=== PATIENT | female | born 1940 | race Caucasian/White ===

== ENCOUNTER 2019-03-15 19:59 | Emergency (ER) | payer OTHER ==
[~2019-03-15] VITALS: Ht 157.5 cm; Wt 57.7 kg
--- NOTE | 2019-03-15 20:02 | NUR ---
BIB DAUGHTER FOR INTERMITTENT ABD PAIN; PT AAOX2-3, PT ON MONITOR, VSS, NAD NOTED, PENDING MD ROMO
[2019-03-15] MEDS ORDERED: ONDANSETRON HCL/PF 4 MG/2 ML VIAL IVP ONE (20:30)
[2019-03-15] MEDS ORDERED: IV NS 0.9% 1,000 ML BAG IV ONE ×2 (20:30→21:30)
[2019-03-15 20:36] LABS: APPEARANCE,URINE Clear (CLEAR); BILIRUBIN,URINE SMALL (NEGATIVE); BLOOD, URINE Trace-lysed Ery/uL (NEGATIVE); COLOR,URINE Yellow (YELLOW); KETONES,URINE Trace (NEGATIVE); LEUKOCYTE ESTERASE ,URINE Trace (NEGATIVE); NITRITE, URINE Negative (NEGATIVE); PROTEIN,URINE 100 mg/dl (NEGATIVE); UGLUCOSE Negative (NEGATIVE); UROBILINOGEN,URINE 0.2 EU/dL (0.2)
[2019-03-15] MEDS ORDERED: ONDANSETRON HCL/PF 4 MG/2 ML VIAL ONE (20:46)
[2019-03-15 20:48] LABS: BACTERIA,URINE Few /HPF (None Seen); SQUAMOUS EPITHELIAL CELL,UR Few /HPF (None Seen)
[2019-03-15 21:00] LABS: BASOPHILS # (AUTO) 0.1 /CMM (0.0-0.2); BASOPHILS % (AUTO) 0.4 % (0.0-2.0); EOSINOPHILS % (AUTO) 1.9 % (0.0-6.0); HEMATOCRIT 33 % (33-45); HEMOGLOBIN 10.6 g/dL (11.5-14.8); LYMPHOCYTES # (AUTO) 4.5 /CMM (0.8-4.8); LYMPHOCYTES % (AUTO) 33.4 % (20.0-44.0); MEAN CORPUSCULAR HGB CONC 33 g/dl (31.0-36.0); MEAN CORPUSCULAR VOLUME 88 fL (82-100); MONOCYTES # (AUTO) 0.8 /CMM (0.1-1.30); MONOCYTES % (AUTO) 5.7 % (2.0-12.0); NEUTROPHILS # (AUTO) 7.9 /CMM (1.8-8.9); NEUTROPHILS % (AUTO) 58.6 % (43.0-81.0); PLATELET COUNT (AUTO) 301 /CMM (150-450); RED BLOOD CELL COUNT(AUTO) 3.69 MIL/uL (4.0-5.2); WHITE BLOOD COUNT (AUTO) 13.4 K/uL (4.3-11.0)
[2019-03-15 21:30] LABS: ALANINE AMINOTRANSFERASE 129 U/L (12-78); ALBUMIN 3.7 g/dL (3.4-5.0); ALKALINE PHOSPHATASE 221 U/L (46-116); ASPARTATE AMINOTRANSFERASE 186 U/L (15-37); BILIRUBIN,DIRECT 0.2 mg/dL (0.0-0.2); BILIRUBIN,TOTAL 0.5 mg/dL (0.2-1.0); CALCIUM, SERUM 9.1 mg/dL (8.5-10.1); CARBON DIOXIDE 28 mmol/L (21-32); CHLORIDE 104 mmol/L (98-107); CREATININE 1.2 mg/dL (0.6-1.3); GLUCOSE 178 mg/dL (74-106); LIPASE 287 U/L (73-393); POTASSIUM 4.2 mmol/L (3.5-5.1); SODIUM SERUM 142 mmol/L (136-145); TOTAL PROTEIN, SERUM 8.1 g/dL (6.4-8.2); UREA NITROGEN, BLOOD 29 mg/dL (7-18)
[2019-03-16 00:11] VITALS: BP 139/70
--- NOTE | 2019-03-16 00:11 | NUR ---
Patient discharged to home in stable condition. Written and verbal after care instructions given. Patient verbalizes understanding of instruction. IV removed. Catheter intact and site benign. Pressure and 4x4 applied to site. No bleeding noted.
== END 2019-03-16 00:11 | disposition home or self-care (01) ==
LOC: ER 20:02
DX: K83.8 Other specified diseases of biliary tract (principal); K31.0 Acute dilatation of stomach; R74.0 Nonspecific elevation of levels of transaminase and lactic acid dehydrogenase [LDH]; I10 Essential (primary) hypertension; E11.9 Type 2 diabetes mellitus without complications; R11.10 Vomiting, unspecified; Z90.49 Acquired absence of other specified parts of digestive tract; Z98.890 Other specified postprocedural states
CPT/HCPCS: 36415; 74176; 80048; 80076; 81001; 83605 ×2; 83690; 83735; 84484; 85025; 85730; 87040 ×2; 87086; 93005; 96361; 96374; 99284; J2405; J7030 ×2; 81000-TC

== ENCOUNTER 2019-08-20 21:32 | Emergency (ER) | payer OTHER ==
[~2019-08-20] VITALS: Ht 157.5 cm; Wt 57.2 kg
[2019-08-20] MEDS ORDERED: IV NS 0.9% 500 ML BAG IV ONE ×2 (22:00→22:30)
--- NOTE | 2019-08-20 22:01 | NUR ---
BIB FAMILY MEMBERS C/O GENERALIZED WEAKNESS, DIZZINESS & DECREASE APPETITE. PT FAMILY REPORTS UNWITNESSED GFL YESTERDAY. NO FACIAL DROOP. NO H/A. NO ONE SIDED ARM WEAKNESS.
[2019-08-20 22:10] LABS: CALCIUM, SERUM 9.5 mg/dL (8.5-10.1); CARBON DIOXIDE 30 mmol/L (21-32); CHLORIDE 102 mmol/L (98-107); CREATININE 1.4 mg/dL (0.6-1.3); GLUCOSE 154 mg/dL (74-106); POTASSIUM 4.3 mmol/L (3.5-5.1); SODIUM SERUM 139 mmol/L (136-145); UREA NITROGEN, BLOOD 36 mg/dL (7-18)
[2019-08-20 22:14] LABS: BASOPHILS # (AUTO) 0.1 /CMM (0.0-0.2); BASOPHILS % (AUTO) 0.5 % (0.0-2.0); EOSINOPHILS % (AUTO) 3.4 % (0.0-6.0); HEMATOCRIT 32 % (33-45); HEMOGLOBIN 10.5 g/dL (11.5-14.8); LYMPHOCYTES # (AUTO) 5.4 /CMM (0.8-4.8); LYMPHOCYTES % (AUTO) 46.1 % (20.0-44.0); MEAN CORPUSCULAR HGB CONC 33 g/dl (31.0-36.0); MEAN CORPUSCULAR VOLUME 87 fL (82-100); MONOCYTES # (AUTO) 0.6 /CMM (0.1-1.30); MONOCYTES % (AUTO) 5.5 % (2.0-12.0); NEUTROPHILS # (AUTO) 5.2 /CMM (1.8-8.9); NEUTROPHILS % (AUTO) 44.5 % (43.0-81.0); PLATELET COUNT (AUTO) 257 /CMM (150-450); RED BLOOD CELL COUNT(AUTO) 3.71 MIL/uL (4.0-5.2); WHITE BLOOD COUNT (AUTO) 11.7 K/uL (4.3-11.0)
[2019-08-20 22:16] LABS: ALANINE AMINOTRANSFERASE 12 U/L (12-78); ALBUMIN 3.5 g/dL (3.4-5.0); ALKALINE PHOSPHATASE 42 U/L (46-116); ASPARTATE AMINOTRANSFERASE 12 U/L (15-37); BILIRUBIN,DIRECT 0.1 mg/dL (0.0-0.2); BILIRUBIN,TOTAL 0.2 mg/dL (0.2-1.0); LIPASE 277 U/L (73-393); TOTAL PROTEIN, SERUM 7.8 g/dL (6.4-8.2)
[2019-08-20 22:36] LABS: APPEARANCE,URINE Clear (CLEAR); BILIRUBIN,URINE Negative (NEGATIVE); BLOOD, URINE Small Ery/uL (NEGATIVE); COLOR,URINE Yellow (YELLOW); KETONES,URINE Negative (NEGATIVE); LEUKOCYTE ESTERASE ,URINE Small (NEGATIVE); NITRITE, URINE Negative (NEGATIVE); PROTEIN,URINE Negative (NEGATIVE); UGLUCOSE Negative (NEGATIVE); UROBILINOGEN,URINE 0.2 EU/dL (0.2)
[2019-08-20 23:45] LABS: WBC,URINE 21-50 /HPF (0-3)
[2019-08-20 23:46] LABS: BACTERIA,URINE Few /HPF (None Seen); SQUAMOUS EPITHELIAL CELL,UR Few /HPF (None Seen)
[2019-08-21] MEDS ORDERED: MORPHINE SULFATE INJ 10 MG/ML DISP.SYRIN IV ONE
[2019-08-21] MEDS ORDERED: MORPHINE SULFATE INJ 4 MG/ML DISP.SYRIN ONE (00:15)
--- NOTE | 2019-08-21 00:42 | NUR ---
IV removed. Catheter intact and site benign. Pressure and 4x4 applied to site. No bleeding noted.
--- NOTE | 2019-08-21 00:42 | NUR ---
Patient does not wish to proceed with medical care recommended by Dr. Palacio. Patient given information related to possible complications, up to and including , which could occur as a result of leaving the hospital at this time. Patient verbalizes understanding of risks involved due to leaving against medical advice. Patient has signed AMA form.
--- NOTE | 2019-08-21 01:06 | NUR ---
Patient discharged to home with the familly.
[2019-08-21 01:34] VITALS: BP 134/76
== END 2019-08-21 01:06 | disposition left against medical advice (07) ==
LOC: ER 21:32
DX: R55 Syncope and collapse (principal); I10 Essential (primary) hypertension; E11.9 Type 2 diabetes mellitus without complications; Z90.49 Acquired absence of other specified parts of digestive tract; Z86.73 Personal history of transient ischemic attack (TIA), and cerebral infarction without residual deficits
CPT/HCPCS: 36415; 70450; 71045; 80048; 80076; 81001; 83690; 84484; 85025; 87086; 93005; 99284; J7040 ×2; 81000-TC; J2270

== ENCOUNTER 2020-11-29 23:04 | Emergency (ER) | payer OTHER ==
[~2020-11-29] VITALS: Ht 154.9 cm; Wt 81.6 kg
--- NOTE | 2020-11-29 23:58 | NUR ---
BIBFAMIRON C/O FEVER X4 DAY +DRY COUGH, AT [facility] FOR EVAL. AWAITING ORDERS.
[2020-11-29] MEDS ORDERED: ACETAMINOPHEN 325 MG TABLET ONE (23:59)
[2020-11-30] MEDS ORDERED: ACETAMINOPHEN 650 MG/20.3 ML UDC ONE (00:06)
[2020-11-30] MEDS: ACETAMINOPHEN 325 MG TABLET PO ONE ×2 (00:13)
[2020-11-30] MEDS ORDERED: ACETAMINOPHEN 650 MG/20.3 ML UDC PO ONE (00:30)
--- NOTE | 2020-11-30 02:02 | NUR ---
Patient discharged to home in stable condition. Written and verbal after care instructions given. Patient verbalizes understanding of instruction and RX. Pt wheeled out. Pt's daughter picked up pt.
[2020-11-30 02:25] VITALS: BP 138/72
== END 2020-11-30 02:26 | disposition home or self-care (01) ==
LOC: ER 23:07
DX: U07.1 COVID-19 (principal); Z86.73 Personal history of transient ischemic attack (TIA), and cerebral infarction without residual deficits; I11.9 Hypertensive heart disease without heart failure; R91.8 Other nonspecific abnormal finding of lung field; Z90.49 Acquired absence of other specified parts of digestive tract; E11.9 Type 2 diabetes mellitus without complications; J90 Pleural effusion, not elsewhere classified
CPT/HCPCS: 71045; 99284; C9803; U0003

== ENCOUNTER 2020-12-06 19:22 | Inpatient (IN) | payer OTHER ==
[~2020-12-06] VITALS: Ht 157.5 cm; Wt 64.4 kg
--- NOTE | 2020-12-06 19:40 | NUR ---
Note undone in EDM - 12/06/20 at 2134 by SANDI TO ER BED 17 BIB DAUGHTER FOR C/O WEAKNESS & FEVER X1DAY. TESTED COVID (+) 11/29/20. TYLENOLY Q4H WITHOUT RELIEF PER PT DAUGHTER REPORT. PT AAOX4 NO ACUTE DISTRESS NOTED, RESP EVEN AND UNLABORED, O2 SAT 95% ON RA. PLACE PT ON CARDIAC MONITORING, CONTINUOUS POX. PENDING ER MD ROMO.
--- NOTE | 2020-12-06 19:40 | NUR ---
TO ER BED 17 BIB DAUGHTER FOR C/O WEAKNESS & FEVER X1DAY. TESTED COVID (+) 11/29/20. TYLENOLY Q4H WITHOUT RELIEF PER PT DAUGHTER REPORT. PT AAOX2 NO ACUTE DISTRESS NOTED, RESP EVEN AND UNLABORED, O2 SAT 95% ON RA. PLACE PT ON CARDIAC MONITORING, CONTINUOUS POX. PENDING ER MD RMOO.
--- NOTE | 2020-12-06 19:45 | NUR ---
STARTED SL 18G RFA, BLOOD DRAWN AND SENT TO LAB.
[2020-12-06] MEDS ORDERED: AZITHROMYCIN 500 MG in IV D5W 250 ML IV ONE ×2 (20:00→20:30)
[2020-12-06] MEDS ORDERED: CEFTRIAXONE 1 G in IV D5W 50 ML IV ONE ×2 (20:00→20:30)
[2020-12-06] MEDS ORDERED: IBUPROFEN 600 MG TABLET PO ONE (20:00)
[2020-12-06] MEDS ORDERED: ACETAMINOPHEN ES 500 MG TABLET PO ONE (20:00)
[2020-12-06] MEDS ORDERED: DEXAMETHASONE SOD PHOSPHATE 10 MG/ML VIAL IV ONE ×2 (20:00→20:30)
[2020-12-06] MEDS ORDERED: IBUPROFEN 600 MG TABLET ONE (20:10)
[2020-12-06 20:11] LABS: BASOPHILS % (AUTO) 0.1 % (0.0-2.0); EOSINOPHILS % (AUTO) 0.2 % (0.0-6.0); HEMATOCRIT 30 % (33-45); LYMPHOCYTES # (AUTO) 2.3 /CMM (0.8-4.8); LYMPHOCYTES % (AUTO) 20.8 % (20.0-44.0); MEAN CORPUSCULAR HGB CONC 33 g/dl (31.0-36.0); MEAN CORPUSCULAR VOLUME 86 fL (82-100); MONOCYTES # (AUTO) 0.5 /CMM (0.1-1.30); MONOCYTES % (AUTO) 4.9 % (2.0-12.0); NEUTROPHILS # (AUTO) 8.3 /CMM (1.8-8.9); PLATELET COUNT (AUTO) 336 /CMM (150-450); RED BLOOD CELL COUNT(AUTO) 3.54 MIL/uL (4.0-5.2); WHITE BLOOD COUNT (AUTO) 11.2 K/uL (4.3-11.0)
[2020-12-06 20:17] LABS: CALCIUM, SERUM 8.7 mg/dL (8.5-10.1); CARBON DIOXIDE 24 mmol/L (21-32); CHLORIDE 94 mmol/L (98-107); CREATININE 1.5 mg/dL (0.6-1.3); GLUCOSE 207 mg/dL (74-106); POTASSIUM 3.7 mmol/L (3.5-5.1); SODIUM SERUM 129 mmol/L (136-145); UREA NITROGEN, BLOOD 24 mg/dL (7-18)
[2020-12-06 20:19] LABS: ABG BASE EXCESS -3.5 mmol/L; ABG OXYGEN SATURATION 92.3 % (92.0-98.5); ABG PCO2 30.5 mmHg (35.0-45.0); ABG PH 7.433 (7.350-7.450); ABG PO2 61.4 mmHg (75.0-100.0); AaDO2 51.8 mmHg; COHb 0.1 % (0.5-1.5); MetHb 0.4 % (0.0-1.5); O2Hb 91.8 % (94.0-97.0); SITE, ABG Right Radial; VENT MODE, BG RA
[2020-12-06] MEDS ORDERED: IBUPROFEN SUSP 100 MG/5 ML UDC ONE (20:19)
[2020-12-06] MEDS ORDERED: CEFTRIAXONE 1GM BAG (ER ONLY) 50 ML IV ONE (20:27)
[2020-12-06] MEDS ORDERED: DEXAMETHASONE SOD PHOSPHATE 10 MG/ML VIAL ONE (20:27)
[2020-12-06] MEDS ORDERED: IBUPROFEN SUSP 100 MG/5 ML UDC PO ONE (20:30)
[2020-12-06 20:31] LABS: ALANINE AMINOTRANSFERASE 43 U/L (12-78); ALBUMIN 2.8 g/dL (3.4-5.0); ALKALINE PHOSPHATASE 42 U/L (46-116); ASPARTATE AMINOTRANSFERASE 47 U/L (15-37); BILIRUBIN,DIRECT 0.2 mg/dL (0.0-0.2); BILIRUBIN,TOTAL 0.4 mg/dL (0.2-1.0); TOTAL PROTEIN, SERUM 7.9 g/dL (6.4-8.2)
[2020-12-06] MEDS ORDERED: AZITHROMYCIN 500 MG VIAL ONE (20:47)
[2020-12-06 20:53] LABS: D-DIMER 1.15 mg/L(FEU (0.17-0.50)
--- NOTE | 2020-12-06 21:24 | NUR ---
CALLED DAUGHTER NOELLE, NOTIFIED HER THAT PT IS BEING ADMITTED TO HOSPITAL. SHE SAID TO CALL HER FOR ANY UPDATES
--- NOTE | 2020-12-06 21:36 | NUR ---
COVID SWAB COLLECTED AND SENT TO LAB.
[2020-12-06] MEDS ORDERED: DOCU-141 PO (22:57)
[2020-12-06] MEDS ORDERED: ERGO500014 (22:57)
[2020-12-06] MEDS ORDERED: ASPI-1169 PO (22:57)
[2020-12-06] MEDS ORDERED: LISI2.5T2 PO (22:57)
[2020-12-06] MEDS ORDERED: METF-440 PO (22:57)
[2020-12-06] MEDS ORDERED: EZET10TA15 GT (22:57)
[2020-12-06] MEDS ORDERED: TOLT4CAP PO (22:57)
--- NOTE | 2020-12-06 22:58 | NUR ---
SPOKE TO THE PT'S DAUGHTER OVER THE PHONE AND UBTAINED THE HOME MED'S LIST. MED RECON DONE ACCORDINGLY.
[2020-12-06 23:18] LABS: CREATINE KINASE, TOTAL 48 U/L (26-192); FERRITIN 581 ng/mL (8-388)
[2020-12-06 23:21] LABS: C-REACTIVE PROTEIN 13.2 mg/dL (0.0-0.9)
[2020-12-07] MEDS ORDERED: DEXTROSE 50%-WATER 50 ML DISP.SYRIN IV PRN
[2020-12-07] MEDS ORDERED: ONDANSETRON HCL/PF 4 MG/2 ML VIAL IVP PRN
[2020-12-07] MEDS ORDERED: MORPHINE SULFATE INJ 2 MG/ML DISP.SYRIN IV PRN
[2020-12-07] MEDS ORDERED: ALBUTEROL SULFATE INH 18 GM HFA.AER.AD IH PRN
[2020-12-07] MEDS ORDERED: ACETAMINOPHEN 325 MG TABLET PO PRN
[2020-12-07] MEDS ORDERED: Potassium Chloride 20 MEQ in IV NS 0.9% 1,000 ML IV PRN ×2
[2020-12-07] MEDS ORDERED: Z GUARD REMEDY 2 OZ OINT TP PRN
[2020-12-07] MEDS ORDERED: ENOXAPARIN SODIUM 30 MG/0.3 ML DISP.SYRIN SQ SCH
[2020-12-07] MEDS ORDERED: ENOXAPARIN SODIUM 30 MG/0.3 ML DISP.SYRIN ONE (00:17)
--- NOTE | 2020-12-07 01:32 | NUR ---
PT ASLEEP, NO ACUTE DISTRESS NOTED, RESP EVEN AND UNLABORED. NO PAIN OR DISCOMFORT NOTED. CALL LIGHT WITHIN REACH. WILL CONTINUE TO MONITOR PT CLOSELY.
[2020-12-07 04:58] LABS: BASOPHILS % (AUTO) 0.2 % (0.0-2.0); HEMATOCRIT 34 % (33-45); HEMOGLOBIN 11.1 g/dL (11.5-14.8); LYMPHOCYTES # (AUTO) 1.1 /CMM (0.8-4.8); LYMPHOCYTES % (AUTO) 12.6 % (20.0-44.0); MEAN CORPUSCULAR HGB CONC 33 g/dl (31.0-36.0); MEAN CORPUSCULAR VOLUME 85 fL (82-100); MONOCYTES # (AUTO) 0.3 /CMM (0.1-1.30); MONOCYTES % (AUTO) 2.8 % (2.0-12.0); NEUTROPHILS # (AUTO) 7.5 /CMM (1.8-8.9); NEUTROPHILS % (AUTO) 84.4 % (43.0-81.0); PLATELET COUNT (AUTO) 358 /CMM (150-450); RED BLOOD CELL COUNT(AUTO) 3.93 MIL/uL (4.0-5.2); WHITE BLOOD COUNT (AUTO) 8.9 K/uL (4.3-11.0)
[2020-12-07 05:54] LABS: ALANINE AMINOTRANSFERASE 39 U/L (12-78); ALBUMIN 2.7 g/dL (3.4-5.0); ALKALINE PHOSPHATASE 45 U/L (46-116); ASPARTATE AMINOTRANSFERASE 39 U/L (15-37); B-TYPE NATRIURETIC PEPTIDE 812 PG/ML (0-125); BILIRUBIN,TOTAL 0.4 mg/dL (0.2-1.0); CALCIUM, SERUM 8.9 mg/dL (8.5-10.1); CARBON DIOXIDE 24 mmol/L (21-32); CHLORIDE 95 mmol/L (98-107); CREATININE 1.8 mg/dL (0.6-1.3); GLUCOSE 348 mg/dL (74-106); MAGNESIUM 1.5 mg/dL (1.8-2.4); PHOSPHORUS 2.9 mg/dL (2.5-4.9); POTASSIUM 3.5 mmol/L (3.5-5.1); SODIUM SERUM 131 mmol/L (136-145); UREA NITROGEN, BLOOD 27 mg/dL (7-18)
[2020-12-07 05:59] LABS: CHOLESTEROL 113 mg/dL (<200); HDL CHOLESTEROL 62 mg/dL (40-60); LDL 43 mg/dL (0-99); THYROID STIMULATING HORMONE 0.452 uIU/mL (0.358-3.74); TRIGLYCERIDES 54 mg/dL (30-150)
--- NOTE | 2020-12-07 07:30 | NUR ---
REPORT GIVEN TO AM SHIFT EUGENIO SRIVASTAVA.
[2020-12-07] MEDS: BLOOD SUGAR DIAGNOSTIC 1 EACH STRIP IN SCH ×4 (07:41→21:47)
[2020-12-07] MEDS ORDERED: INSULIN REGULAR, HUMAN 100 UNIT/ML 10 ML VIAL ONE (08:48)
[2020-12-07] MEDS ORDERED: DEXAMETHASONE SOD PHOSPHATE 10 MG/ML VIAL ONE (08:49)
[2020-12-07] MEDS ORDERED: PANTOPRAZOLE 40 MG TABLET.DR PO ONE (08:49)
[2020-12-07] MEDS: INSULIN REGULAR, HUMAN 100 UNIT/ML 3 ML VIAL SQ PRN ×3 (08:50→22:03)
--- NOTE | 2020-12-07 08:50 | NUR ---
PATIENT REFUSING TO EAT BREAKFAST, INSULIN HELD AT THIS TIME.
[2020-12-07] MEDS: TOLTERODINE 2 MG CAP.SR PO SCH (08:52)
[2020-12-07] MEDS: ASPIRIN 81 MG TAB.CHEW PO SCH (08:52)
[2020-12-07] MEDS: DEXAMETHASONE SOD PHOSPHATE 10 MG/ML VIAL IV SCH (08:52)
[2020-12-07] MEDS: DOCUSATE SODIUM 100 MG CAPSULE PO SCH ×2 (08:52→16:29)
[2020-12-07] MEDS: PANTOPRAZOLE 40 MG TABLET.DR PO SCH (08:52)
[2020-12-07] MEDS ORDERED: Magnesium 1GM/D5W 100ML PREMIX 100 ML IV SCH (11:00)
[2020-12-07] MEDS ORDERED: Magnesium 1GM/D5W 100ML PREMIX 100 ML IV ONE (11:19)
--- NOTE | 2020-12-07 11:46 | NUR ---
PATIENT WEIGH ON THE BED, SHOWS 64KG. RECEIVED ORDER FROM DR. LEES TO START HEPARIN DRIP.
--- NOTE | 2020-12-07 11:51 | NUR ---
ORDERED PTT, PT/INR PER PHARMACY'S REQUEST.
--- NOTE | 2020-12-07 12:26 | NUR ---
PER DR. LEES, GIVE BOLUS FOR THE HEPARIN DRIP.
--- NOTE | 2020-12-07 12:33 | NUR ---
OFFERED FOOD MULTIPLE TIMES, PATIENT IS REFUSING TO EAT. EXPLAINED RISKS AND BENEFITS, PATIENT ONLY WANTS JUICE. INSULIN HELD AT THIS TIME. WILL CALL FAMILY.
--- NOTE | 2020-12-07 12:52 | NUR ---
PTT RESULTED, [facility] HEPARIN SHEET FAXED OVER TO PHARMACY
[2020-12-07] MEDS ORDERED: HEPARIN SODIUM, PORCINE 5000 UNITS/1 ML VIAL IV ONE (13:00)
--- NOTE | 2020-12-07 13:23 | NUR ---
ROOM 200
[2020-12-07] MEDS ORDERED: HEPARIN SODIUM, PORCINE 5000 UNITS/1 ML VIAL ONE (13:34)
[2020-12-07] MEDS: HEPARIN INFUSION/D5W 500 ML IV PRN ×2 (14:08→22:16)
--- NOTE | 2020-12-07 14:13 | NUR ---
REPORT GIVEN TO JIMMIE BECKER FOR WILLIAM.
--- NOTE | 2020-12-07 14:13 | NUR ---
HEPARIN STARTED NO ADVERSE REACTION NOTED.
--- NOTE | 2020-12-07 14:18 | NUR ---
NEXT PTT SCHEDULED AT 1999.
--- NOTE | 2020-12-07 14:30 | NUR ---
GOLF CLUB REPAIRER OPENING NOTE RECEIVED PATIENT FROM ER - REPORT FROM ZAYRA. PATIENT IS AWAKE, A&O. MAINLY OCCITAN SPEAKING. VS: BP 145/88 HR 98 RR 19 T 97.6 O2 SAT 92% ON ROOM AIR. IV TO RIGHT FOREARM INTACT AND PATENT. CONTINUES ON HEPARIN DRIP FOR ELEVATED TROPONIN LEVEL. NO S/S OF ACTIVE BLEEDING NOTED. NO S/S PAIN NOTED. CALL LIGHT WITHIN REACH. ASPIRATION, FALL AND SAFETY PRECAUTIONS MAINTAINED. WILL CONTINUE TO MONITOR.
--- NOTE | 2020-12-07 14:30 | NUR ---
PATIENT TRANSFERRED TO ROOM 200 VIA ACLS PROTOCOL. NO DISTRESS NOTED. IN STABLE CONDITION. DAUGHTER MADE AWARE PATIENT IS REFUSING MEALS.
[2020-12-07 14:45] VITALS: BP 145/88
--- NOTE | 2020-12-07 18:27 | NUR ---
PLANE TENDER CLOSING NOTE PATIENT IS CURRENTLY RESTING IN BED. AWAKE, ALERT AND ORIENTED X 1-2. PRIMARILY ROMANIAN SPEAKING. ABLE TO MAKE NEEDS KNOWN. NO COMPLAINTS OF PAIN THIS SHIFT. IV ACCESS TO RIGHT FOREARM INTACT AND PATENT. CONTINUES ON HEPARIN DRIP WITH PTT BEING DRAWN AT 1999. NO S/S OF ADVERSE SIDE EFFECTS NOTED. NO S/S OF ACTIVE BLEEDING NOTED. CALL LIGHT WITHIN REACH. ASPIRATION, FALL AND SAFETY PRECAUTIONS MAINTAINED. WILL ENDORSE TO ONCOMING SHIFT RN. Addendum: 12/07/20 at 1831 by JIMMIE ARCE RN VITAL SIGNS: BP 145/88 HR 98 RR 19 T 97.6 O2 SAT 92% ON ROOM AIR. NO S/S OF RESPIRATORY DISTRESS NOTED.
--- NOTE | 2020-12-07 19:30 | NUR ---
LIQUOR BRIDGE OPERATOR HELPER OPENING NOTE RECEIVED PATIENT IN BED. A/OX 2. TRYING TO COMMUNICATE WITH HAND GESTURES. TOLERATING ROOM AIR AT THIS TIME. RESPIRATIONS ARE EVEN AND UNLBAORED. NO S/S SOB NOTED. NO S/S PAIN NOTED. EXTERNAL TELE MONITOR READS SINUS RHYTHM HR 70S. IN NO APPARENT DISTRESS. IV ACCESS IN RFA#18 RUNNING HEPARIN 960 UNITS/HR. BED IS LOW AND LOCKED, HOB ELEVATED IN SEMI FOWLERS, SIDE RAILS UP X3. CALL LIGHT WITHIN REACH. WILL CONTINUE TO MONITOR THROUGHOUT SHIFT.
[2020-12-07 20:00] VITALS: BP 150/82
--- NOTE | 2020-12-07 20:59 | NUR ---
BUILDING TRADES INSTRUCTOR NOTE - HEPARIN RECEIVED LAB APTT 161.1. PER WEIGHT BASE HEPARIN DOSING ORDER FOR ACUTE CORONARY SYNDROME/AMI HOLD INFUSION FOR 60 MINUTES AND THEN DECREASE BY 200UNITS/HOUR. WILL DECREASE AND CONTINUE AT 760 UNITS/HOUR. ORDER PT/PTT IN 6 HOURS AFTER INFUSION BEGINS AGAIN.
[2020-12-07] MEDS: AZITHROMYCIN 500 MG in IV D5W 250 ML IV SCH (21:47)
[2020-12-08] VITALS: BP 132/76
[2020-12-08 04:00] VITALS: BP 99/52
[2020-12-08 04:21] LABS: BASOPHILS % (AUTO) 0.1 % (0.0-2.0); HEMATOCRIT 33 % (33-45); HEMOGLOBIN 11.1 g/dL (11.5-14.8); LYMPHOCYTES # (AUTO) 2.3 /CMM (0.8-4.8); LYMPHOCYTES % (AUTO) 13.6 % (20.0-44.0); MEAN CORPUSCULAR HGB CONC 33 g/dl (31.0-36.0); MEAN CORPUSCULAR VOLUME 84 fL (82-100); MONOCYTES # (AUTO) 0.8 /CMM (0.1-1.30); NEUTROPHILS # (AUTO) 13.9 /CMM (1.8-8.9); NEUTROPHILS % (AUTO) 81.3 % (43.0-81.0); PLATELET COUNT (AUTO) 416 /CMM (150-450); RED BLOOD CELL COUNT(AUTO) 3.96 MIL/uL (4.0-5.2)
[2020-12-08 04:31] LABS: CALCIUM, SERUM 9.2 mg/dL (8.5-10.1); CARBON DIOXIDE 25 mmol/L (21-32); CHLORIDE 95 mmol/L (98-107); CREATININE 1.5 mg/dL (0.6-1.3); GLUCOSE 242 mg/dL (74-106); MAGNESIUM 3.3 mg/dL (1.8-2.4); POTASSIUM 3.8 mmol/L (3.5-5.1); SODIUM SERUM 132 mmol/L (136-145); UREA NITROGEN, BLOOD 31 mg/dL (7-18)
--- NOTE | 2020-12-08 04:40 | NUR ---
FELT HAT INSPECTOR AND PACKER NOTE - HEPARIN APTT 77.3. PER WEIGHT BASED HEPARIN DOSING ORDER FOR ACUTE CORONARY SYNDROME/AMI DECREASE RATE BY 50 UNITS/HOURS. NEW DOSE IS 710 UNITS /HR. ORDER PT/PTT AFTER 6 HOURS.
[2020-12-08] MEDS: HEPARIN INFUSION/D5W 500 ML IV PRN ×2 (05:05→22:08)
--- NOTE | 2020-12-08 06:19 | NUR ---
THIRD SHIFT LIEUTENANT CLOSING NOTE PATIENT RESTING IN BED. A/OX 2. REMAINS TOLERATING ROOM AIR AT THIS TIME.NO RESP DISTRESS NOTED. NO PAIN NOTED. EXTERNAL TELE MONITOR READS SINUS RHYTHM. NO DISTRESS. IV ACCESS MAINTAINED IN RFA#18 RUNNING HEPARIN 710 UNITS/HR, NO BLEEDING NOTED. BED REMAINS LOW AND LOCKED, HOB ELEVATED IN SEMI FOWLERS, SIDE RAILS UP X3. CALL LIGHT WITHIN REACH. WILL ENDORSE TO NEXT SHIFT.
[2020-12-08] MEDS: BLOOD SUGAR DIAGNOSTIC 1 EACH STRIP IN SCH ×3 (06:29→17:34)
[2020-12-08] MEDS: INSULIN REGULAR, HUMAN 100 UNIT/ML 3 ML VIAL SQ PRN ×3 (06:34→17:35)
--- NOTE | 2020-12-08 07:30 | NUR ---
PT RECEIVED RESTING COMFORTABLY IN BED. NO S/S OR C/O PAIN OR DISTRESS NOTED. SIDE RAILS UP X2, CALL LIGHT LEFT WITHIN REACH. WILL CONTINUE PLAN OF CARE.
[2020-12-08] MEDS: PANTOPRAZOLE 40 MG TABLET.DR PO SCH (09:17)
[2020-12-08] MEDS: TOLTERODINE 2 MG CAP.SR PO SCH (09:17)
[2020-12-08] MEDS: DEXAMETHASONE SOD PHOSPHATE 10 MG/ML VIAL IV SCH (09:17)
[2020-12-08] MEDS: ASPIRIN 81 MG TAB.CHEW PO SCH (09:18)
[2020-12-08] MEDS: DOCUSATE SODIUM 100 MG CAPSULE PO SCH ×2 (09:18→17:34)
[2020-12-08] MEDS: SOD FERRIC GLUC 125 MG in IV NS 0.9% 100 ML IV SCH (14:52)
--- NOTE | 2020-12-08 19:30 | NUR ---
CHANGE OF SHIFT REPORT PT RESTING COMFORTABLY IN BED. NO S/S OR C/O PAIN OR DISTRESS NOTED. SIDE RAILS UP X2, CALL LIGHT LEFT WITHIN REACH. PT KEPT CLEAN, DRY, AND COMFORTABLE. NO SIGNIFICANT CHANGES SINCE PREVIOUS SHIFT. REPORT GIVEN TO MASSIMO BECKER.
[2020-12-08 20:00] VITALS: BP 96/65
[2020-12-08] MEDS: AZITHROMYCIN 500 MG in IV D5W 250 ML IV SCH (20:10)
[2020-12-09] VITALS: BP 117/66
[2020-12-09] MEDS: INSULIN REGULAR, HUMAN 100 UNIT/ML 3 ML VIAL SQ PRN ×5 (00:04→22:47)
[2020-12-09] MEDS: BLOOD SUGAR DIAGNOSTIC 1 EACH STRIP IN SCH ×5 (00:04→22:34)
--- NOTE | 2020-12-09 00:53 | NUR ---
MS2/RN DURING INITIAL SHIFT ROUNDING, FOUND PATIENT ON BED AWAKE, ALERT, ORIENTED X 1, COMFORTABLE, NO C/O PAIN, NO DISTRESS NOTED, CALL LIGHT IN REACH. RECEIVED MULTIPLE CALL FROM FAMILY MEMBERS AND CALLS WERE TRANSFERRED TO THE ROOM AND HAD THEM SPEAK TO THE PATIENT. PATIENT IS ON HEPARIN DRIP, MONITORING PER PROTOCOL. PRESENTLY, PATIENT IS SLEEPING, APPEAR COMFORTABLE, NO DISTRESS NOTED, CALL LIGHT IN REACH, FALL PRECAUTION PROTOCOL. WILL MONITOR.
[2020-12-09 04:00] VITALS: BP 139/81
[2020-12-09 04:36] LABS: BASOPHILS % (AUTO) 0.1 % (0.0-2.0); HEMATOCRIT 31 % (33-45); HEMOGLOBIN 10.2 g/dL (11.5-14.8); LYMPHOCYTES # (AUTO) 2.2 /CMM (0.8-4.8); MEAN CORPUSCULAR HGB CONC 33 g/dl (31.0-36.0); MEAN CORPUSCULAR VOLUME 84 fL (82-100); MONOCYTES % (AUTO) 5.7 % (2.0-12.0); NEUTROPHILS # (AUTO) 14.8 /CMM (1.8-8.9); NEUTROPHILS % (AUTO) 82.2 % (43.0-81.0); PLATELET COUNT (AUTO) 400 /CMM (150-450); RED BLOOD CELL COUNT(AUTO) 3.66 MIL/uL (4.0-5.2); WHITE BLOOD COUNT (AUTO) 18.1 K/uL (4.3-11.0)
[2020-12-09 04:53] LABS: ALANINE AMINOTRANSFERASE 50 U/L (12-78); ALBUMIN 2.4 g/dL (3.4-5.0); ALKALINE PHOSPHATASE 46 U/L (46-116); ASPARTATE AMINOTRANSFERASE 54 U/L (15-37); BILIRUBIN,TOTAL 0.2 mg/dL (0.2-1.0); CALCIUM, SERUM 8.6 mg/dL (8.5-10.1); CARBON DIOXIDE 23 mmol/L (21-32); CHLORIDE 97 mmol/L (98-107); CREATININE 1.7 mg/dL (0.6-1.3); GLUCOSE 219 mg/dL (74-106); MAGNESIUM 1.9 mg/dL (1.8-2.4); PHOSPHORUS 3.6 mg/dL (2.5-4.9); POTASSIUM 3.5 mmol/L (3.5-5.1); SODIUM SERUM 132 mmol/L (136-145); TOTAL PROTEIN, SERUM 7.1 g/dL (6.4-8.2); UREA NITROGEN, BLOOD 35 mg/dL (7-18)
--- NOTE | 2020-12-09 06:40 | NUR ---
MS2/RN CALLED LAB TO F/U PT/PTT RESULT, PER LAB THEY ARE STILL WORKING ON IT.
--- NOTE | 2020-12-09 07:01 | NUR ---
MS2/RN PATIENT IS STILL SLEEPING, EASILY AROUSABLE, APPEAR COMFORTABLE, NO DISTRESS NOTED, CALL LIGHT IN REACH, ALL NEEDS ATTENDED AT THIS TIME, WILL CONTINUE TO MONITOR.
[2020-12-09 08:00] VITALS: BP 121/58
--- NOTE | 2020-12-09 08:00 | NUR ---
AIRPLANE NAVIGATOR OPENING NOTE RECEIVED PATIENT IN BED. A/OX 2. MALTESE SPEAKING. TOLERATING ROOM AIR WHEN ASSISTED IN THE TOILET. RESPIRATIONS ARE EVEN AND UNLABORED. NO S/S SOB NOTED. NO S/S PAIN NOTED. EXTERNAL TELE MONITOR READS SINUS RHYTHM ST HR 70-120S. IN NO APPARENT DISTRESS. IV ACCESS IN RFA#18 RUNNING HEPARIN 410 UNITS/HR RUNNING AT 8.6 MLS/HR. NO S/S OF BLEEDING NOTED.BED IS LOW AND LOCKED, HOB ELEVATED IN SEMI FOWLERS, SIDE RAILS UP X3. CALL LIGHT WITHIN REACH. WILL CONTINUE TO MONITOR
[2020-12-09] MEDS: TOLTERODINE 2 MG CAP.SR PO SCH (08:18)
[2020-12-09] MEDS: PANTOPRAZOLE 40 MG TABLET.DR PO SCH (08:18)
[2020-12-09] MEDS: ASPIRIN 81 MG TAB.CHEW PO SCH (08:18)
[2020-12-09] MEDS: DEXAMETHASONE SOD PHOSPHATE 10 MG/ML VIAL IV SCH (08:18)
[2020-12-09] MEDS: DOCUSATE SODIUM 100 MG CAPSULE PO SCH ×2 (08:18→16:33)
[2020-12-09 12:00] VITALS: BP 145/79
[2020-12-09] MEDS: SOD FERRIC GLUC 125 MG in IV NS 0.9% 100 ML IV SCH (13:46)
[2020-12-09 16:00] VITALS: BP 143/82
--- NOTE | 2020-12-09 17:47 | NUR ---
RN CLOSING NOTE ADMITTED FOR COVID PNEUMONIA WITH A CHIEF COMPLAINT OF WEAKNESS. PT IS IN BED RESTING. PT IS A/O X3 AND COOPERATIVE. SHE CAN ONLY SPEAK CHADIAN. RECOMMENDED TO CALL DAUGHTER TO TRANSLATE IF NEEDED. PT IS CURRENTLY ON 2L O2 VIA NASAL CANNULA. NO SIGNS OF RESPIRATORY DISTRESS PRESENT.PT IS SINUS RHYTHM. ABLE TO AMBULATE TO THE BATHROOM WITH ASSISTANCE. PT IS FALL RISK DUE TO WEAKNESS. SKIN IS INTACT. THERE IS A HEPARIN DRIP GOING AT 410 U/HR TO THE R FOREARM. IVF PRESENT ON THE L FOREARM. PT LAST BG IS 369, 10 UNITS OF INSULIN GIVEN. SAFETY MEASURES IN PLACE. SIDE RAILS RAISED. CALL LIGHT WITHIN REACH. BED IN THE LOWEST POSITION.
--- NOTE | 2020-12-09 19:30 | NUR ---
farm machine tender opening notes Received Pt from morning nurse. Pt is resting in bed comfortably. Pt is alert and orientedX2. Pt speaks Albanian and able to make needs known. Respiration on 2 L NC. No SOB. No S/S of distress noted. IV site at RFA# 18 is clean, intact and infusing well heparin running at 8.6 ml/hr. LFA # 18 is clean, intact and SL. Tele monitor showed S. tachy Hr at 115 bpm. Safety precautions is maintained. Bed at low position, brakes locked, side rails upX2, hob elevated and call light is within reach. Will continue to monitor. Addendum: 12/10/20 at 0756 by CRUZITO CHOWDHURY RN heparin drip at 410 U/HR.
[2020-12-09] MEDS: AZITHROMYCIN 500 MG in IV D5W 250 ML IV SCH (19:33)
[2020-12-09 20:00] VITALS: BP_SYST 118; BP_SYST 146; BP_DIAS 63; BP_DIAS 90
--- NOTE | 2020-12-09 20:30 | NUR ---
human performance professor notes Received a phone call from lab Didi regarding Pt's PTT is 83.7. Informed and notified ANGELINA Snyder. No new orders received. Will follow heparin protocol.
[2020-12-09] MEDS: HEPARIN INFUSION/D5W 500 ML IV PRN (21:27)
[2020-12-10] VITALS: BP 132/75
[2020-12-10 04:00] VITALS: BP 145/85
--- NOTE | 2020-12-10 07:00 | NUR ---
director of early childhood education opening notes Pt is resting in bed comfortably. Pt is alert and orientedX2. Pt speaks Serbian and able to make needs known. Respiration on 2 L NC. No SOB. No S/S of distress noted. IV site at RFA# 18 is clean, intact and infusing well heparin drip running at 310 U/HR per hospital protocol. LFA # 18 is clean, intact and SL. Routine meds were given as ordered. VS is stable. Afebrile. Tele monitor showed SR Hr at 80 bpm. Kept Pt clean, dry and comfortable. All needs met and attended. Safety precautions is maintained. Bed at low position, brakes locked, side rails upX2, hob elevated and call light is within reach. Will endorse to morning nurse for WILLIAM.
[2020-12-10] MEDS: BLOOD SUGAR DIAGNOSTIC 1 EACH STRIP IN SCH ×3 (07:09→17:05)
[2020-12-10] MEDS: INSULIN REGULAR, HUMAN 100 UNIT/ML 3 ML VIAL SQ PRN (07:12)
[2020-12-10 08:00] VITALS: BP 106/56
--- NOTE | 2020-12-10 08:30 | NUR ---
GROCERY SUPERVISOR NOTES HEPARIN DRIP STOPPED AT 0835 PER MD ORDER.
[2020-12-10 08:58] LABS: BASOPHILS # (AUTO) 0.2 /CMM (0.0-0.2); BASOPHILS % (AUTO) 1.3 % (0.0-2.0); EOSINOPHILS % (AUTO) 0.1 % (0.0-6.0); HEMATOCRIT 34 % (33-45); HEMOGLOBIN 11.1 g/dL (11.5-14.8); LYMPHOCYTES # (AUTO) 3.5 /CMM (0.8-4.8); LYMPHOCYTES % (AUTO) 21.4 % (20.0-44.0); MEAN CORPUSCULAR HGB CONC 33 g/dl (31.0-36.0); MEAN CORPUSCULAR VOLUME 85 fL (82-100); MONOCYTES # (AUTO) 0.7 /CMM (0.1-1.30); MONOCYTES % (AUTO) 4.3 % (2.0-12.0); NEUTROPHILS # (AUTO) 11.9 /CMM (1.8-8.9); NEUTROPHILS % (AUTO) 72.9 % (43.0-81.0); PLATELET COUNT (AUTO) 430 /CMM (150-450); RED BLOOD CELL COUNT(AUTO) 3.98 MIL/uL (4.0-5.2); WHITE BLOOD COUNT (AUTO) 16.3 K/uL (4.3-11.0)
[2020-12-10] MEDS ORDERED: NITROGLYCERIN 30 GM TUBE TP SCH (09:00)
[2020-12-10] MEDS: hydrALAZINE HCL 50 MG TABLET PO SCH ×3 (09:00→16:44)
[2020-12-10 09:18] LABS: CALCIUM, SERUM 9.1 mg/dL (8.5-10.1); CARBON DIOXIDE 26 mmol/L (21-32); CHLORIDE 98 mmol/L (98-107); CREATININE 1.5 mg/dL (0.6-1.3); GLUCOSE 136 mg/dL (74-106); PHOSPHORUS 2.8 mg/dL (2.5-4.9); POTASSIUM 3.8 mmol/L (3.5-5.1); SODIUM SERUM 135 mmol/L (136-145); UREA NITROGEN, BLOOD 32 mg/dL (7-18)
[2020-12-10] MEDS: PANTOPRAZOLE 40 MG TABLET.DR PO SCH (09:50)
[2020-12-10] MEDS: DOCUSATE SODIUM 100 MG CAPSULE PO SCH ×2 (09:50→16:44)
[2020-12-10] MEDS: DEXAMETHASONE SOD PHOSPHATE 10 MG/ML VIAL IV SCH (09:50)
[2020-12-10] MEDS: ASPIRIN 81 MG TAB.CHEW PO SCH (09:50)
[2020-12-10] MEDS: TOLTERODINE 2 MG CAP.SR PO SCH (09:51)
[2020-12-10] MEDS ORDERED: HEPARIN SODIUM, PORCINE 5000 UNITS/1 ML VIAL SQ SCH (10:30)
[2020-12-10 10:54] LABS: LYMPHOCYTES % (MANUAL) 32 % (16-48); MONOCYTES % (MANUAL) 3 % (0-11.0); NEUTROPHILS % (MANUAL) 65 (42-76)
[2020-12-10 12:00] VITALS: BP 145/83
[2020-12-10] MEDS: SOD FERRIC GLUC 125 MG in IV NS 0.9% 100 ML IV SCH (14:27)
[2020-12-10 16:00] VITALS: BP 122/75
[2020-12-10 16:44] VITALS: BP 122/75
[2020-12-10] MEDS ORDERED: ALBU18HF2 IH (18:44)
[2020-12-10] MEDS ORDERED: HYDR-4077 PO (18:44)
--- NOTE | 2020-12-10 19:25 | NUR ---
EXTRUSION OPERATOR CLOSING NOTES PATIENT RESTING COMFORTABLY IN BED AND AWAITING DISCHARGE. D/C ENDORSED TO THE CONTACT AND SERVICE CLERKS SUPERVISOR NURSE.
== END 2020-12-10 20:49 | disposition home or self-care (01) | DRG 137 ==
LOC: ER 19:23 → TRANSITION 21:38 → MEDSG2 12-07 13:30 → TELE2 12-07 16:15
PROVIDERS: ADMIT Internal Medicine; ATTEND Nurse Practitioner Acute Care
DX: U07.1 COVID-19 (principal); J12.82 Pneumonia due to coronavirus disease 2019; J96.01 Acute respiratory failure with hypoxia; D68.69 Other thrombophilia; E11.22 Type 2 diabetes mellitus with diabetic chronic kidney disease; E11.65 Type 2 diabetes mellitus with hyperglycemia; E43 Unspecified severe protein-calorie malnutrition; I21.4 Non-ST elevation (NSTEMI) myocardial infarction; E78.5 Hyperlipidemia, unspecified; I13.0 Hypertensive heart and chronic kidney disease with heart failure and stage 1 through stage 4 chronic kidney disease, or unspecified chronic kidney disease; N17.0 Acute kidney failure with tubular necrosis; N18.9 Chronic kidney disease, unspecified; Z90.49 Acquired absence of other specified parts of digestive tract; I50.9 Heart failure, unspecified; F01.50 Vascular dementia, unspecified severity, without behavioral disturbance, psychotic disturbance, mood disturbance, and anxiety; Z86.73 Personal history of transient ischemic attack (TIA), and cerebral infarction without residual deficits; E87.1 Hypo-osmolality and hyponatremia; E86.1 Hypovolemia; Z68.26 Body mass index [BMI] 26.0-26.9, adult; N13.9 Obstructive and reflux uropathy, unspecified; Z79.84 Long term (current) use of oral hypoglycemic drugs; R53.1 Weakness
CPT/HCPCS: 36415; 36600; 71045-TC; 80048-TC; 80053-TC; 80061-TC; 80076-TC; 82550-TC; 82728-TC; 82962-TC; 83540-TC; 83605-TC; 83615-TC; 83735-TC; 83880; 84100-TC; 84443-TC; 84484-TC; 85025-TC; 85378-TC; 85610-TC; 85730-TC; 86140-TC; 87040-TC; 87081-TC; 93308-TC; 97116-TC; 97530-TC; G0378; J0456; J0696; J1100; J1644; J1650; J1815; J2270; J2405; J2916; J3475; J3480; J7030; J7050; J7060; U0003